=== PATIENT | female | born 1960 | race Caucasian/White ===

== ENCOUNTER 2022-02-26 06:54 | Day surgery (SDC) | payer OTHER ==
[2022-02-26] MEDS ORDERED: Lactated Ringers 1,000 ML IV SCH (07:00)
[2022-02-26] MEDS ORDERED: fentaNYL 50 MCG/ML SDV ONE (07:27)
[2022-02-26] MEDS ORDERED: Propofol 200 MG/20 ML SDV ONE (07:27)
[2022-02-26] MEDS ORDERED: Midazolam 1 MG/ML 2 ML SDV ONE (07:27)
== END 2022-02-26 10:47 | disposition home or self-care (01) ==
LOC: JP.SDS 06:54
PROVIDERS: ATTEND Family Medicine
DX: Z12.11 Encounter for screening for malignant neoplasm of colon (principal); Z88.0 Allergy status to penicillin; Z88.6 Allergy status to analgesic agent; Z79.899 Other long term (current) drug therapy
CPT/HCPCS: 45378; J2250; J2704; J3010; J7120